=== PATIENT | female | born 1955 | race Caucasian/White ===

== ENCOUNTER 2019-11-28 21:40 | Emergency (ER) | payer OTHER ==
[~2019-11-28] VITALS: Ht 175.3 cm; Wt 90.7 kg
[2019-11-28 22:00] VITALS: BP 157/108
--- NOTE | 2019-11-28 22:29 | NUR ---
PATIENT LEFT WITHOUT BEING SEEN BY DR. REDDY. NO FURTHER CARE PROVIDED FOR PATIENT.
== END 2019-11-28 22:29 | disposition left against medical advice (07) ==
LOC: MED 21:40
DX: R07.81 Pleurodynia (principal)

== ENCOUNTER 2019-12-18 20:02 | Emergency (ER) | payer OTHER ==
[~2019-12-18] VITALS: Ht 175.3 cm; Wt 96.6 kg
[2019-12-18 20:05] VITALS: BP 148/70
--- NOTE | 2019-12-18 20:07 | NUR ---
PT TAKEN TO BED 07 VIA WHEELCHAIR.
--- NOTE | 2019-12-18 20:10 | NUR ---
68 YEAR OLD FEMALE COMPLAINS OF DIFFUSE ABDOMINAL PAIN X 3 DAYS. PT STATES THAT SHE FEELS LIKE THERE IS ALOT OF GAS BUT UNABLE TO FART. PT ALSO COMPLAINS OF NAUSEA, BUT NO VOMITTING. PT AOX4, BREATHING EVEN AND UNLABORED, SKIN WARM AND DRY. BED IN LOWEST POSITION, LOCKED, BED RAIL UPX1. PMH - HYSTERECTOMY ALLERGIES - CODEINE
[2019-12-18 20:30] LABS: BASOPHILS # (AUTO) 0.1 K/uL (0.00-0.22); EOSINOPHILS # (AUTO) 0.3 K/uL (0-0.4); EOSINOPHILS % (AUTO) 2.8 % (0.0-4.0); HEMATOCRIT 43.5 % (36-48); HEMOGLOBIN 14.1 g/dL (12.0-16.0); LYMPHOCYTES # (AUTO) 2.4 K/uL (2.5-16.5); LYMPHOCYTES % (AUTO) 25.8 % (20.5-51.1); MEAN CORPUSCULAR HEMOGLOBIN 28 pg (27-31); MEAN CORPUSCULAR HGB CONC 33 g/dL (33-37); MEAN CORPUSCULAR VOLUME 85.5 fL (80-94); MONOCYTES # (AUTO) 0.8 K/uL (0.8-1.0); MONOCYTES % (AUTO) 9.1 % (1.7-9.3); NEUTROPHILS # (AUTO) 5.6 K/uL (1.8-7.7); NEUTROPHILS % (AUTO) 61.3 % (42.2-75.2); PLATELET COUNT (AUTO) 310 K/uL (140-450); RED BLOOD CELL COUNT(AUTO) 5.09 MIL/uL (4.20-5.40); WHITE BLOOD COUNT (AUTO) 9.2 K/uL (4.8-10.8)
[2019-12-18] MEDS ORDERED: KETOROLAC 30 MG/ML VIAL IM ONE (20:35)
[2019-12-18 20:43] LABS: ALBUMIN 3.5 g/dL (3.4-5.0); ANION GAP 8.3 (8-16); CARBON DIOXIDE 34.2 mmol/L (21-32); CREATININE 0.9 mg/dL (0.6-1.3); POTASSIUM 3.5 mmol/L (3.5-5.1); TOTAL BILIRUBIN 0.4 mg/dL (0.0-1.0)
--- NOTE | 2019-12-18 20:46 | NUR ---
PT REQUEST TO HAVE MEDICATION CHANGED TO IV RATHER THAN IM, PA MADE AWARE
[2019-12-18] MEDS ORDERED: KETOROLAC 30 MG/ML VIAL IVP ONE (20:50)
--- NOTE | 2019-12-18 20:52 | NUR ---
PT TAKEN TO CT
[2019-12-18 20:54] LABS: APPEARANCE,URINE CLEAR (CLEAR); BILIRUBIN,URINE NEGATIVE (NEGATIVE); BLOOD, URINE NEGATIVE (NEGATIVE); COLOR,URINE ORANGE (YELLOW); LEUKOCYTE ESTERASE ,URINE TRACE (NEGATIVE); NITRITE, URINE POSITIVE (NEGATIVE); PH,URINE 5.5 (5.0-9.0); UGLUCOSE 1+ (NEGATIVE)
[2019-12-18 21:04] LABS: RBC,URINE 0-5 /HPF (0-5)
--- NOTE | 2019-12-18 21:15 | NUR ---
PT RETURN FROM CT
--- NOTE | 2019-12-18 21:52 | NUR ---
ERMD AT BEDSIDE
[2019-12-18] MEDS ORDERED: DICYCLOMINE HCL LIQUID 20 MG, ALUMINUM HYD/MAG/SIMETHICONE 30 ML, LIDOCAINE VISCOUS 2% ... PO ONE ×3 (21:55)
[2019-12-18] MEDS ORDERED: ALUMINUM HYD/MAG/SIMETHICONE 30 ML UDC ONE (22:03)
[2019-12-18] MEDS ORDERED: LIDOCAINE VISCOUS 2% 20 ML UDC ONE (22:03)
[2019-12-18] MEDS ORDERED: DICYCLOMINE HCL LIQUID 10 MG/5 ML UDC ONE (22:03)
[2019-12-18] MEDS ORDERED: cefTRIAXone 1,000 MG VIAL ONE (22:05)
--- NOTE | 2019-12-18 22:20 | NUR ---
PT ALERT AND AWAKE, BREATHING EVEN AND UNLABORED
[2019-12-18 23:00] VITALS: BP 157/90
--- NOTE | 2019-12-18 23:00 | NUR ---
Patient discharged with v/s stable. Written and verbal after care instructions about hiatal hernia and urinary tract infection given and explained. Patient alert, oriented and verbalized understanding of instructions. Ambulatory with steady gait. All questions addressed prior to discharge. ID band removed. Patient advised to follow up with PMD. Rx of omeprazole and macrobid capsule given. Patient educated on indication of medication including possible reaction and side effects. Opportunity to ask questions provided and answered.
== END 2019-12-18 23:00 | disposition home or self-care (01) ==
LOC: MED 20:02
DX: K44.9 Diaphragmatic hernia without obstruction or gangrene (principal); N39.0 Urinary tract infection, site not specified; Z88.6 Allergy status to analgesic agent; Z90.710 Acquired absence of both cervix and uterus
CPT/HCPCS: 36415; 74176; 80053; 81001; 81025; 83690; 85025; 87086; 87186; 96365; 96375; 99284; J0696; J1885